=== PATIENT | female | born 1935 | race Caucasian/White ===

== ENCOUNTER 2016-07-03 13:58 | Emergency (ER) | payer OTHER ==
[~2016-07-03] VITALS: Ht 160 cm; Wt 53.5 kg
[~2016-07-03 13:58] MED LIST: /HCTZ25TA PO; AMLO5CAP2 PO; ASPI32ECTA PO; BIMA01SOL OU; CALC600T21 PO; CALC600T9 PO; CENTTAB47 PO; HYDR12.55 PO; IBUP200T2 PO; IBUP600T26 PO; LEVO50TA4 PO; LOTR52CA PO; NORCOTAB PO; PERC5TAB6 PO; SIMV20TA2 PO; SOMA350T PO; SYNT50TA PO; [UNRECOGNIZED DRUG - OTHER] PO
[2016-07-03] MEDS ORDERED: AMLODIPINE BENAZEPRIL (14:39)
[2016-07-03] MEDS ORDERED: IBUP600T26 PO (14:39)
[2016-07-03] MEDS ORDERED: CENTTAB36 PO (14:39)
[2016-07-03] MEDS ORDERED: LEVO50TA5 (14:39)
[2016-07-03] MEDS ORDERED: CALC600T33 PO (14:39)
[2016-07-03 16:26] VITALS: BP 178/85
[2016-07-03] MEDS ORDERED: VALA1TAB PO (16:30)
--- NOTE | 2016-07-03 18:14 | REP ---
CT HEAD WITHOUT CONTRAST: HISTORY: Headache. Areas of decreased attenuation are present in the periventricular white matter. This represents small vessel ischemic disease. There is no intraparenchymal hemorrhage, mass, or midline shift. The ventricular system and cortical sulci as well as subarachnoid space and the posterior fossa are dilated consistent with mild volume loss. There is no extracerebral collection. The visualized sinuses are clear. A 3 mm metallic density is present in the subcutaneous tissue overlying the left frontal bone. IMPRESSION: 1. Small vessel ischemic disease. 2. Mild volume loss. Signed by Boo Sarmiento MD 07/04/2016 08:20 A
== END 2016-07-03 16:40 | disposition home or self-care (01) ==
LOC: M ED 16:14
DX: B02.9 Zoster without complications (principal); E07.9 Disorder of thyroid, unspecified; Z79.899 Other long term (current) drug therapy; Z88.5 Allergy status to narcotic agent

== ENCOUNTER → 2016-07-25 | Outpatient (CLI) | payer OTHER ==
[~2016-07-25] MED LIST changes: +AMLODIPINE BENAZEPRIL; +CALC600T33 PO; +CENTTAB36 PO; +LEVO50TA5; +VALA1TAB PO
--- NOTE | 2016-07-25 10:25 | REP ---
Clinical: Trauma. Injury. Technique: Internal rotation, external rotation, and Y view. Comparison: 09/15/2010. Findings: Osteopenia and age-related degenerative changes are appreciated. No obvious acute fracture or dislocation. Impression: No acute fracture or dislocation. Signed by Ryan Sanchez MD 07/25/2016 10:17 A
== END ==
LOC: M LRY 09:52
PROVIDERS: ATTEND Nurse Practitioner Family
DX: S49.92XA Unspecified injury of left shoulder and upper arm, initial encounter (principal); X58.XXXA Exposure to other specified factors, initial encounter; Y92.89 Other specified places as the place of occurrence of the external cause; Y93.89 Activity, other specified; Y99.8 Other external cause status
CPT/HCPCS: 73030; G0463

== ENCOUNTER → 2016-08-26 | Outpatient (CLI) | payer OTHER ==
--- NOTE | 2016-08-26 11:13 | REP ---
MRI BILATERAL SHOULDER: TECHNIQUE: Axial T2 fat sat, gradient echo, sagittal oblique T2 fat sat, coronal oblique T1, T2 fat sat. LEFT SHOULDER: On the left side, there is a full thickness tear of both the supraspinatus and infraspinatus tendons with retraction and atrophy. Subscapularis tendon appears partially torn. Teres minor appears intact. There is mild subacromial spurring. There does appear to be thin biceps tendon in the bicipital groove without surrounding fluid. There is no Hill-Sachs deformity. No definite abnormal signal is seen in the deltoid muscle. I do not see the biceps inserting onto the anterior superior portion of the labrum and there may be a tear at the biceps labral complex. There is an adjacent tear of the superior labrum. 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 There is moderate joint effusion. Fluid tracks centrally along the rotator cuff tendons. IMPRESSION: Full thickness tears of the supraspinatus and infraspinatus tendons with retraction and atrophy. Partial tear subscapularis tendon. Thin biceps tendon is seen within the bicipital groove but there may be a tear at the biceps labral complex as it is not well visualized. There is a tear of the adjacent superior labrum. Moderate joint effusion. Chondromalacia at the glenohumeral joint with spurring and subchondral cystic changes. RIGHT SHOULDER: There are full thickness tears of the supraspinatus and infraspinatus tendons with retraction and atrophy. Teres minor and subscapularis appear grossly intact. There is mild hypertrophic spurring at the acromioclavicular joint. There may be a thin biceps tendon in the bicipital groove. There is no significant fluid in that region. Biceps labral complex is not well visualized and may be torn. Diffuse SLAP tear is visualized. Anchors are seen in the superolateral humeral head from prior surgery. There is a mild to moderate joint effusion with fluid extending into the subacromial subdeltoid bursae. No paralabral cyst is seen. IMPRESSION: Evidence of prior surgery with metallic anchors in the humeral head. Full thickness complete tears of the supraspinatus and infraspinatus tendons with retraction and atrophy. Mild hypertrophic degenerative changes acromioclavicular joint. SLAP tear with possible tear of the biceps labral complex. Moderate joint effusion with fluid extending into the subacromial subdeltoid bursae. Signed by Abhijeet Donald MD 08/26/2016 08:07 P
== END ==
LOC: M PLARAD 09:00
PROVIDERS: ATTEND Family Medicine
DX: S46.892A Other injury of other muscles, fascia and tendons at shoulder and upper arm level, left arm, initial encounter (principal); M25.412 Effusion, left shoulder; M94.212 Chondromalacia, left shoulder; M75.82 Other shoulder lesions, left shoulder; S43.432A Superior glenoid labrum lesion of left shoulder, initial encounter; X58.XXXA Exposure to other specified factors, initial encounter; Y92.89 Other specified places as the place of occurrence of the external cause; Y93.89 Activity, other specified; Y99.8 Other external cause status; M19.012 Primary osteoarthritis, left shoulder

== ENCOUNTER → 2016-10-10 | Outpatient (REF) | payer OTHER ==
[~2016-10-10] MED LIST changes: +ASPI325T24 PO; -ASPI32ECTA PO; -CALC600T21 PO; -CALC600T33 PO; +CALC600T36 PO; +CALC600T60 PO; +IBUP-1022 PO; -IBUP600T26 PO; +PERC5TAB12 PO; -PERC5TAB6 PO; -VALA1TAB PO; +VALA1TAB2 PO
== END ==
LOC: M SFHCLERA 10-09 16:23
PROVIDERS: ATTEND Family Medicine
DX: J02.9 Acute pharyngitis, unspecified (principal)
CPT/HCPCS: 87070; 87205; G0463

== ENCOUNTER → 2017-04-16 | Outpatient (CLI) | payer OTHER ==
--- NOTE | 2017-04-16 15:46 | REPMRS ---
Patient History The patient states she has not had a clinical breast exam in over a year. Patient is postmenopausal. Family history of colorectal cancer in father and breast cancer in maternal aunt. Digital Woman Screen Mammo: April 16, 2017 - Exam #: [id number] Bilateral CC and MLO view(s) were taken. Technologist: Vanessa Cheek, Technologist Prior study comparison: February 28, 2016, digital woman screen mammo performed at [facility]. February 07, 2015, digital woman screen mammo performed at [facility] to [facility]. FINDINGS: The breast tissue is heterogeneously dense. This may lower the sensitivity of mammography. There has been no change in the appearance of the mammogram from the prior studies. There is a moderate amount of residual fibroglandular tissue which is fairly symmetric. There is no interval development of dominant mass, areas of architectural distortion, or clustered microcalcification typical of malignancy. ASSESSMENT: BI-RADS/ACR category 1 mammogram. Negative. Recommendation Routine screening mammogram in 1 year (for women over age 40). This mammogram was interpreted with the aid of an FDA-approved computer-aided dectection system. Electronically Signed By: Abhijeet Donald MD 04/16/17 [id number]
== END ==
LOC: M WHC 14:12
PROVIDERS: ATTEND Family Medicine
DX: Z12.31 Encounter for screening mammogram for malignant neoplasm of breast (principal); Z78.0 Asymptomatic menopausal state; R92.8 Other abnormal and inconclusive findings on diagnostic imaging of breast

== ENCOUNTER → 2017-05-08 | Outpatient (REF) | payer OTHER ==
[2017-05-08 12:23] LABS: HEMATOCRIT 35.5 % (36.0-47.0); HEMOGLOBIN 11.8 g/dl (12.0-16.0); MEAN CORPUSCULAR HEMOGLOBIN 31.1 pg (27.0-33.0); MEAN CORPUSCULAR HGB CONC 33.2 g/dl (32.0-36.5); MEAN CORPUSCULAR VOLUME 93.4 fl (80.0-96.0); PLATELET COUNT, AUTOMATED 305 10^3/uL (150-450); RED CELL DISTRIBUTION WIDTH 12.4 % (11.5-14.5); WHITE BLOOD COUNT 4.3 10^3/uL (4.0-10.0)
[2017-05-08 13:05] LABS: ALBUMIN/GLOBULIN RATIO 1.29 (1.00-1.93); ALKALINE PHOSPHATASE 53 U/L (45-117); ALT/SGPT 27 U/L (12-78); ANION GAP 5 MEQ/L (8-16); AST/SGOT 24 U/L (7-37); BILIRUBIN,TOTAL 0.3 MG/DL (0.2-1.0); BLOOD UREA NITROGEN 23 MG/DL (7-18); CARBON DIOXIDE LEVEL 30 MEQ/L (21-32); CHLORIDE LEVEL 101 MEQ/L (98-107); CHOLESTEROL LEVEL 228 MG/DL (<200); CHOLESTEROL RISK RATIO 3.352 (<5); CREATININE FOR GFR 0.81 MG/DL (0.55-1.02); GLOMERULAR FILTRATION RATE > 60.0 (>32); GLUCOSE, FASTING 76 MG/DL (83-110); HDL CHOLESTEROL 68 MG/DL (>40); LDL CHOLESTEROL 137.4 MG/DL (<100); NON-HDL-C 160 MG/DL; POTASSIUM SERUM 4.9 MEQ/L (3.5-5.1); SODIUM LEVEL 136 MEQ/L (136-145); TOTAL PROTEIN 7.1 GM/DL (6.4-8.2); TRIGLYCERIDES LEVEL 113 MG/DL (<150)
[2017-05-08 13:06] LABS: CREATININE, URINE 64.7 MG/DL; MALB URINE SIEMENS 21.4 MG/L
[2017-05-08 13:35] LABS: ESTIMATED AVERAGE GLUCOSE 111 MG/DL (60-110); HEMOGLOBIN A1c 5.5 %
== END ==
LOC: M SFHCLERA 09:44
DX: I10 Essential (primary) hypertension (principal); Z79.899 Other long term (current) drug therapy
CPT/HCPCS: 84443

== ENCOUNTER → 2018-01-12 | Outpatient (REF) | payer OTHER ==
[2018-01-12 19:50] LABS: BASO % 0.7 % (0.0-1.0); EOS # 0.2 10^3/uL (0.0-0.50); HEMATOCRIT 37.1 % (36.0-47.0); HEMOGLOBIN 12.7 g/dl (12.0-15.5); IMMATURE GRANULOCYTE % 0.3 % (0-3.0); LYMPH # 1.7 10^3/uL (1.5-4.5); MEAN CORPUSCULAR HEMOGLOBIN 31.9 pg (27.0-33.0); MEAN CORPUSCULAR HGB CONC 34.2 g/dl (32.0-36.5); MEAN CORPUSCULAR VOLUME 93.2 fl (80.0-96.0); MONO # 0.5 10^3/uL (0.0-0.8); NEUTROPHILS # 3.7 10^3/uL (1.8-7.7); PLATELET COUNT, AUTOMATED 309 10^3/uL (150-450); RED BLOOD COUNT 3.98 10^6/uL (4.00-5.40); RED CELL DISTRIBUTION WIDTH 12.4 % (11.5-14.5); WHITE BLOOD COUNT 6.1 10^3/uL (4.0-10.0)
[2018-01-12 22:46] LABS: ANION GAP 11 MEQ/L (8-16); BLOOD UREA NITROGEN 23 MG/DL (7-18); CARBON DIOXIDE LEVEL 23 MEQ/L (21-32); CHLORIDE LEVEL 97 MEQ/L (98-107); CREATININE FOR GFR 0.85 MG/DL (0.55-1.30); GLOMERULAR FILTRATION RATE > 60.0 (>32); GLUCOSE, FASTING 87 MG/DL (70-100); POTASSIUM SERUM 4.6 MEQ/L (3.5-5.1); SODIUM LEVEL 131 MEQ/L (136-145)
== END ==
LOC: M SFHCLERA 16:51
DX: I10 Essential (primary) hypertension (principal)
CPT/HCPCS: 84443

== ENCOUNTER → 2018-04-20 | Outpatient (CLI) | payer OTHER ==
[~2018-04-20] MED LIST changes: -ASPI325T24 PO; +ASPI325T25 PO
--- NOTE | 2018-04-20 18:14 | REPMRS ---
Patient History The patient states she has not had a clinical breast exam in over a year. Patient is postmenopausal. Family history of breast cancer in maternal aunt, colorectal cancer in father. No Hormone Replacement Therapy Digital Woman Screen Mammo: April 20, 2018 - Exam #: [id number] Bilateral CC and MLO view(s) were taken. Technologist: aVnessa Cheek, Technologist Prior study comparison: April 16, 2017, digital woman screen mammo performed at [facility]. February 28, 2016, digital woman screen mammo performed at [facility]. February 07, 2015, digital woman screen mammo performed at [facility] to [facility]. FINDINGS: The breast tissue is heterogeneously dense. This may lower the sensitivity of mammography. There is a moderate amount of heterogeneously dense fibroglandular tissue which is fairly symmetric. There is no interval development of dominant mass, architectural distortion, or clustered microcalcification typical of malignancy. There has been no change in the appearance of the mammogram from the prior studies. 3-D tomosynthesis shows no additional findings. Assessment: BI-RADS/ACR category 1 mammogram. Negative. Recommendation Routine screening mammogram of both breasts in 1 year (for women over age 40). This patient's Lifetime Breast Cancer RIsk is estimated at 1.2 %. This mammogram was interpreted with the aid of an FDA-approved computer-aided dectection system. Electronically Signed By: Darren Mcbride MD 04/20/18 [id number]
== END ==
LOC: M WHC 15:20
PROVIDERS: ATTEND Family Medicine
DX: Z12.31 Encounter for screening mammogram for malignant neoplasm of breast (principal); Z78.0 Asymptomatic menopausal state; Z80.0 Family history of malignant neoplasm of digestive organs

== ENCOUNTER 2018-06-25 05:54 | Day surgery (SDC) | payer MEDICARE ==
[~2018-06-25] VITALS: Ht 157.5 cm; Wt 52.1 kg
[~2018-06-25 05:54] MED LIST changes: +GABA-843
[2018-06-25] MEDS ORDERED: BALANCED SALT IRRIGATION SOLUTION 500ML BAG (FOR OR EYE MACHINE) As Ordered ONE (06:35)
[2018-06-25] MEDS ORDERED: POVIDONE-IODINE 5% OPHTH PREP SOL 30ML As Ordered ONE (06:35)
[2018-06-25] MEDS ORDERED: LIDOCAINE 0.75%/EPINEPHRINE 0.025% IN BSS 1ML SYR INTRACAMERAL (OR ONLY) As Ordered ONE (06:36)
[2018-06-25] MEDS ORDERED: DUOVISC (0.50ML VISCOAT/0.55ML PROVISC) OPHTH KIT As Ordered ONE (06:36)
[2018-06-25] MEDS ORDERED: CEFUROXIME 1MG/0.1ML INTRACAMERAL INJ As Ordered ONE ×2 (06:36→10:15)
[2018-06-25] MEDS ORDERED: PROPARACAINE 0.5% OPHTH SOL 15ML OS ONE (07:00)
[2018-06-25] MEDS ORDERED: PHENYLEPHRINE 2.5% OPHTH SOL 2ML OS ONE (07:00)
[2018-06-25] MEDS ORDERED: TROPICAMIDE 1% OPHTH SOLN 2ML OS ONE (07:00)
[2018-06-25] MEDS ORDERED: OFLOXACIN 0.3 % (OCUFLOX) OPTH SOL 5ML OS ONE (07:00)
[2018-06-25] MEDS ORDERED: MIDAZOLAM INJ 2 MG/2 ML VIAL (J2250) As Ordered ONE (07:09)
[2018-06-25] MEDS ORDERED: fentaNYL 100 MCG/2 ML INJECTION (J3010) As Ordered ONE (07:09)
[2018-06-25 11:20] VITALS: BP 117/79
--- NOTE | 2018-06-27 07:07 | RO ---
DATE OF PROCEDURE: 06/25/2018 PREOPERATIVE DIAGNOSIS: 1. Visually significant nuclear sclerotic cataract, left eye. POSTOPERATIVE DIAGNOSIS: 1. Visually significant nuclear sclerotic cataract, left eye. PROCEDURE PERFORMED: 1. Cataract extraction with use of phacoemulsification, and placement of intraocular lens, SND1T5, 21.5 D, at 178 degrees, left eye, with use of intraoperative aberrometry. SURGEON: Dr. Pineda Sheffield ANESTHESIA: Local with monitored anesthesia care (MAC). COMPLICATIONS: None. POSTOPERATIVE CONDITION: Stable. INDICATION FOR SURGERY: 1. Blurred vision affecting patient's activities of daily living. DESCRIPTION OF PROCEDURE: The patient was seen in the preoperative area and properly identified. The correct operative eye was identified and marked. The patient received topical anesthetic, antibiotics, and topical dilating drops. The patient was then transferred to the operating room. The correct side was re-identified and a time-out was performed. the eye was prepped and draped in a sterile fashion. The eyelids were isolated with Tegaderm tape and the lids were held open with an adjustable speculum. A 1.0 mm paracentesis incision was made. Intraocular preservative free Shugarcaine was then injected into the anterior chamber through the paracentesis. Using a 2.4 mm sharp-tipped keratome, the anterior chamber was entered via a temporal clear cornea incision. A continuous curvilinear capsulorrhexis was created with Utrata forceps. Hydrodissection was performed with balanced salt solution (BSS) on a blunt cannula until the nucleus was able to rotate freely. The crystalline lens was phacoemulsified and aspirated. Irrigation/aspiration was used to remove the cortical material. Cohesive viscoelastic was placed into the capsular bag to deepen it. The Optiwave Refractive Analysis (ORA) device was turned on, two sets of measurements were obtained and the implant power was confirmed. The implant was placed into the capsular bag and allowed to unfold. Placement was confirmed by visualizing the anterior capsulorrhexis. The ORA was then used to position the toric implant, this was done until NRR (no rotated needed) was acheived. Irrigation/aspiration was used to remove the viscoelastic. The clear corneal incision was hydrated with BSS on a blunt cannula. The lens was well positioned.. The incisions were then tested for leaks and found to be negative. The eye was then palpated for appropriate pressure and adjusted accordingly with BSS. The eyelid speculum was then carefully removed. A shield was placed over the eye. The patient tolerated the procedure well and was discharged to the recovery unit in a stable condition. VERONIKA
== END 2018-06-25 11:35 | disposition home or self-care (01) ==
LOC: M SDC 05:54
PROVIDERS: ATTEND Ophthalmology
DX: H25.12 Age-related nuclear cataract, left eye (principal); I10 Essential (primary) hypertension; E03.9 Hypothyroidism, unspecified; Z88.0 Allergy status to penicillin; Z79.899 Other long term (current) drug therapy
CPT/HCPCS: 66984; 92015; J2250; J3010; V2788

== ENCOUNTER 2018-07-02 07:50 | Day surgery (SDC) | payer MEDICARE ==
[~2018-07-02] VITALS: Ht 157.5 cm; Wt 51.3 kg
[~2018-07-02 07:50] MED LIST changes: +BALANCED SALT IRRIGATION SOLUTION 500ML BAG (FOR OR EYE MACHINE) As Ordered ONE; +CEFUROXIME 1MG/0.1ML INTRACAMERAL INJ As Ordered ONE; +DUOVISC (0.50ML VISCOAT/0.55ML PROVISC) OPHTH KIT As Ordered ONE; +LIDOCAINE 0.75%/EPINEPHRINE 0.025% IN BSS 1ML SYR INTRACAMERAL (OR ONLY) As Ordered ONE; +MIDAZOLAM INJ 2 MG/2 ML VIAL (J2250) As Ordered ONE; +OFLOXACIN 0.3 % (OCUFLOX) OPTH SOL 5ML OD ONE; +PHENYLEPHRINE 2.5% OPHTH SOL 2ML OD ONE; +POVIDONE-IODINE 5% OPHTH PREP SOL 30ML As Ordered ONE; +PROPARACAINE 0.5% OPHTH SOL 15ML OD ONE; +TROPICAMIDE 1% OPHTH SOLN 2ML OD ONE; +fentaNYL 100 MCG/2 ML INJECTION (J3010) As Ordered ONE
[2018-07-02] MEDS ORDERED: ONDANSETRON 4MG/2ML VIAL (J2405) As Ordered ONE ×2 (08:37→09:53)
[2018-07-02 11:00] VITALS: BP 98/53
--- NOTE | 2018-07-03 15:38 | RO ---
DATE OF PROCEDURE: 07/02/2018 PREOPERATIVE DIAGNOSIS: 1. Visually significant nuclear sclerotic cataract, right eye. POSTOPERATIVE DIAGNOSIS: 1. Visually significant nuclear sclerotic cataract, right eye. PROCEDURE PERFORMED: 1. Cataract extraction with use of phacoemulsification, and placement of intraocular lens, SV25T4, 22.0 D at 009 degrees, right eye, with use of intraoperative aberrometry. 2. Placement of limbal relaxing incisions, right eye SURGEON: Dr. Pineda Sheffield ANESTHESIA: Local with monitored anesthesia care (MAC). COMPLICATIONS: None. POSTOPERATIVE CONDITION: Stable. INDICATION FOR SURGERY: 1. Blurred vision affecting patient's activities of daily living. DESCRIPTION OF PROCEDURE: The patient was seen in the preoperative area and properly identified. The correct operative eye was identified and marked. The patient received topical anesthetic, antibiotics, and topical dilating drops. The patient was then transferred to the operating room. The correct side was re-identified and a time-out was performed. the eye was prepped and draped in a sterile fashion. The eyelids were isolated with Tegaderm tape and the lids were held open with an adjustable speculum. A 1.0 mm paracentesis incision was made. Intraocular preservative free Shugarcaine was then injected into the anterior chamber through the paracentesis. Using a 2.4 mm sharp-tipped keratome, the anterior chamber was entered via a temporal clear cornea incision. A continuous curvilinear capsulorrhexis was created with Utrata forceps. Hydrodissection was performed with balanced salt solution (BSS) on a blunt cannula until the nucleus was able to rotate freely. The crystalline lens was phacoemulsified and aspirated. Irrigation/aspiration was used to remove the cortical material. Cohesive viscoelastic was placed into the capsular bag to deepen it. The Optiwave Refractive Analysis (ORA) device was turned on, two sets of measurements were obtained and the implant power was confirmed. The implant was placed into the capsular bag and allowed to unfold. Placement was confirmed by visualizing the anterior capsulorrhexis. The ORA was used to align the toric multifocal implant at the 009 degree axis until no rotation needed was achieved. Irrigation/aspiration was used to remove the viscoelastic. The clear corneal incision was hydrated with BSS on a blunt cannula. The lens was well positioned.. The incisions were then tested for leaks and found to be negative. The eye was then palpated for appropriate pressure and adjusted accordingly with BSS. The eyelid speculum was then carefully removed. A shield was placed over the eye. The patient tolerated the procedure well and was discharged to the recovery unit in a stable condition. VERONIKA
== END 2018-07-02 11:27 | disposition home or self-care (01) ==
LOC: M SDC 07:50
PROVIDERS: ATTEND Ophthalmology
DX: H25.11 Age-related nuclear cataract, right eye (principal); I10 Essential (primary) hypertension; E03.9 Hypothyroidism, unspecified; Z87.891 Personal history of nicotine dependence; Z88.8 Allergy status to other drugs, medicaments and biological substances; Z79.899 Other long term (current) drug therapy
CPT/HCPCS: 65772; 66984; J2250; J2405; J3010; V2788

== ENCOUNTER → 2018-09-15 | Outpatient (REF) | payer MEDICARE, OTHER ==
[~2018-09-15] MED LIST changes: -/HCTZ25TA PO; +ASPI-255 PO; -ASPI325T25 PO; -BALANCED SALT IRRIGATION SOLUTION 500ML BAG (FOR OR EYE MACHINE) As Ordered ONE; -CEFUROXIME 1MG/0.1ML INTRACAMERAL INJ As Ordered ONE; -DUOVISC (0.50ML VISCOAT/0.55ML PROVISC) OPHTH KIT As Ordered ONE; +HYDR-3644 PO; +HYDR-3715 PO; -LIDOCAINE 0.75%/EPINEPHRINE 0.025% IN BSS 1ML SYR INTRACAMERAL (OR ONLY) As Ordered ONE; -MIDAZOLAM INJ 2 MG/2 ML VIAL (J2250) As Ordered ONE; -NORCOTAB PO; -OFLOXACIN 0.3 % (OCUFLOX) OPTH SOL 5ML OD ONE; -PHENYLEPHRINE 2.5% OPHTH SOL 2ML OD ONE; -POVIDONE-IODINE 5% OPHTH PREP SOL 30ML As Ordered ONE; -PROPARACAINE 0.5% OPHTH SOL 15ML OD ONE; -TROPICAMIDE 1% OPHTH SOLN 2ML OD ONE; -fentaNYL 100 MCG/2 ML INJECTION (J3010) As Ordered ONE
[2018-09-15 20:40] LABS: CALCIUM LEVEL 9.3 MG/DL (8.8-10.2); CREATININE FOR GFR 0.97 MG/DL (0.55-1.30); GLOMERULAR FILTRATION RATE 58.4 (>32); POTASSIUM SERUM 4.2 MEQ/L (3.5-5.1); THYROID STIMULATING HORMONE 3.61 uIU/ML (0.358-3.740)
== END ==
LOC: M SFHCLERA 14:37
PROVIDERS: ATTEND Family Medicine
DX: I10 Essential (primary) hypertension (principal); E03.9 Hypothyroidism, unspecified

== ENCOUNTER → 2019-01-11 | Outpatient (REF) | payer MEDICARE, OTHER ==
[~2019-01-11] MED LIST changes: -AMLO5CAP2 PO; +AMLO5CAP44 PO
[2019-01-11 20:36] LABS: BASO # 0.1 10^3/uL (0.0-0.2); BASO % 0.8 % (0.0-1.0); EOS # 0.1 10^3/uL (0.0-0.5); EOS % 1.8 % (0.0-3.0); HEMATOCRIT 34.7 % (36.0-47.0); HEMOGLOBIN 11.8 g/dl (12.0-15.5); LYMPH # 1.6 10^3/uL (1.5-5.0); LYMPH % 26.1 % (24.0-44.0); MEAN CORPUSCULAR HEMOGLOBIN 31.8 pg (27.0-33.0); MEAN CORPUSCULAR VOLUME 93.5 fl (80.0-96.0); MONO # 0.6 10^3/uL (0.0-0.8); MONO % 10.1 % (0.0-5.0); NEUTROPHILS # 3.6 10^3/uL (1.5-8.5); PLATELET COUNT, AUTOMATED 288 10^3/uL (150-450); RED BLOOD COUNT 3.71 10^6/uL (4.00-5.40)
[2019-01-11 20:45] LABS: BLOOD UREA NITROGEN 22 MG/DL (7-18); CALCIUM LEVEL 9.3 MG/DL (8.8-10.2); CARBON DIOXIDE LEVEL 28 MEQ/L (21-32); CHLORIDE LEVEL 97 MEQ/L (98-107); CREATININE FOR GFR 0.92 MG/DL (0.55-1.30); GLOMERULAR FILTRATION RATE > 60.0 (>32); GLUCOSE, FASTING 84 MG/DL (70-100); POTASSIUM SERUM 4.5 MEQ/L (3.5-5.1); SODIUM LEVEL 133 MEQ/L (136-145)
[2019-01-11 20:46] LABS: TOTAL 25(OH) VITAMIN D 30.5 NG/ML (30.0-100.0)
== END ==
LOC: M SFHCLERA 15:44
PROVIDERS: ATTEND Family Medicine
DX: I10 Essential (primary) hypertension (principal); E03.9 Hypothyroidism, unspecified; E55.9 Vitamin D deficiency, unspecified

== ENCOUNTER → 2019-02-01 | Outpatient (CLI) | payer MEDICARE ==
--- NOTE | 2019-02-02 15:00 | DEXA ---
AP SPINE L1 - L4 1.198 0.0 1.9 LT FEMUR TOTAL Left hip replacement. LT NECK RT FEMUR TOTAL Right hip replacement. RT NECK TOTAL BODY TOTAL LEFT RADIUS 33% 0.661 -2.5 0.6 COMMENTS: Normal bone densitometry of the spine. There is low bone density of the left radius. The increased density of the spine does not represent a significant change. The decreased density of the left radius. Does represent a significant change. The density of the spine has increased 1.6% since the initial exam on 04/19/1999. The spine density has increased 1.5% since the most recent exam on 02/13/2016. The density of the left radius 33% decreased 11.4% since the initial exam on 06/13/2009. The density of the left radius 33% decreased 9.1% since the most recent exam on 02/13/2016. Bilateral hip replacements. FOLLOW-UP: Recommendation for the next bone density exam: 2 years. VERONIKA
== END ==
LOC: M WHC 14:40
PROVIDERS: ATTEND Family Medicine
DX: Z13.820 Encounter for screening for osteoporosis (principal); M85.831 Other specified disorders of bone density and structure, right forearm; M85.832 Other specified disorders of bone density and structure, left forearm; Z96.643 Presence of artificial hip joint, bilateral; M85.88 Other specified disorders of bone density and structure, other site

== ENCOUNTER → 2019-02-15 | Outpatient (REF) | payer OTHER ==
[2019-02-15 12:29] LABS: FERRITIN 122 NG/ML (8-252); IRON (FE) 83 UG/DL (50-170); PERCENT SATURATION 25.9 % (13.2-45.0); TOTAL IRON BINDING CAPACITY 321 UG/DL (250-450)
[2019-02-15 12:35] LABS: VITAMIN B12 LEVEL 906 PG/ML
[2019-02-15 12:43] LABS: FOLATE > 24.0 NG/ML
== END ==
LOC: M SFHCLERA 09:00
PROVIDERS: ATTEND Family Medicine
DX: D64.9 Anemia, unspecified (principal)

== ENCOUNTER → 2019-02-15 | Outpatient (REF) | payer OTHER | LOC: M SFHCLERA 11:56 | PROVIDERS: ATTEND Family Medicine | DX: D64.9 Anemia, unspecified (principal) ==

== ENCOUNTER → 2019-03-12 | Outpatient (REF) | payer OTHER | LOC: M SFHCLERA 13:39 | PROVIDERS: ATTEND Family Medicine | DX: E03.9 Hypothyroidism, unspecified (principal) ==

== ENCOUNTER → 2019-04-15 | Outpatient (REF) | payer MEDICARE ==
[~2019-04-15] MED LIST changes: +SIMV20TA22 PO; -VALA1TAB2 PO; +VALA1TAB64 PO
[2019-04-15 12:47] LABS: BLOOD UREA NITROGEN 22 MG/DL (7-18); CALCIUM LEVEL 9.4 MG/DL (8.8-10.2); CARBON DIOXIDE LEVEL 30 MEQ/L (21-32); CHLORIDE LEVEL 99 MEQ/L (98-107); CREATININE FOR GFR 0.88 MG/DL (0.55-1.30); GLOMERULAR FILTRATION RATE > 60.0 (>32); GLUCOSE, FASTING 75 MG/DL (70-100); POTASSIUM SERUM 4.8 MEQ/L (3.5-5.1); SODIUM LEVEL 135 MEQ/L (136-145); THYROID STIMULATING HORMONE 0.593 uIU/ML (0.358-3.740)
== END ==
LOC: M SFHCLERA 09:56
PROVIDERS: ATTEND Family Medicine
DX: I10 Essential (primary) hypertension (principal); E03.9 Hypothyroidism, unspecified

== ENCOUNTER → 2019-04-21 | Outpatient (CLI) | payer MEDICARE ==
--- NOTE | 2019-04-21 14:14 | REPMRS ---
Patient History The patient states she has not had a clinical breast exam in over a year. Family history of breast cancer in maternal aunt, colorectal cancer in father. No Hormone Replacement Therapy Digital Woman Screen Mammo: April 21, 2019 - Exam #: [id number] Bilateral CC and MLO view(s) were taken. Technologist: Nadine House, Technologist Prior study comparison: April 20, 2018, bilateral digital woman screen mammo performed at [facility]. April 16, 2017, digital woman screen mammo performed at [facility]. February 28, 2016, digital woman screen mammo performed at [facility]. FINDINGS: The breast tissue is heterogeneously dense. This may lower the sensitivity of mammography. There is a moderate amount of heterogeneously dense fibroglandular tissue which is fairly symmetric. There is no interval development of dominant mass, architectural distortion, or grouped microcalcification typical of malignancy. There has been no change in the appearance of the mammogram from the prior studies. 3-D tomosynthesis shows no additional findings. Assessment: BI-RADS/ACR category 1 mammogram. Negative Mammogram. Recommendation Routine screening mammogram of both breasts in 1 year (for women over age 40). This patient's Lifetime Breast Cancer RIsk is estimated at 0.8 %. This mammogram was interpreted with the aid of an FDA-approved computer-aided dectection system. Electronically Signed By: Darren Mcbride MD 04/21/19 [id number]
== END ==
LOC: M WHC 12:40
PROVIDERS: ATTEND Family Medicine
DX: Z12.31 Encounter for screening mammogram for malignant neoplasm of breast (principal)

== ENCOUNTER → 2019-07-07 | Outpatient (REF) | payer MEDICARE ==
[~2019-07-07] MED LIST changes: +VALA1TAB5 PO; -VALA1TAB64 PO
[2019-07-07 16:50] LABS: BASO % 0.7 % (0.0-1.0); EOS # 0.2 10^3/uL (0.0-0.5); HEMATOCRIT 34.5 % (36.0-47.0); HEMOGLOBIN 11.6 g/dl (12.0-15.5); LYMPH # 1.6 10^3/uL (1.5-5.0); LYMPH % 26.1 % (24.0-44.0); MEAN CORPUSCULAR HGB CONC 33.6 g/dl (32.0-36.5); MONO # 0.5 10^3/uL (0.0-0.8); MONO % 8.2 % (0.0-5.0); NEUTROPHILS # 3.6 10^3/uL (1.5-8.5); NEUTROPHILS % 60.8 % (36.0-66.0); PLATELET COUNT, AUTOMATED 282 10^3/uL (150-450); RED BLOOD COUNT 3.63 10^6/uL (4.00-5.40)
[2019-07-07 17:11] LABS: BLOOD UREA NITROGEN 24 MG/DL (7-18); CALCIUM LEVEL 9.3 MG/DL (8.8-10.2); CARBON DIOXIDE LEVEL 31 MEQ/L (21-32); CHLORIDE LEVEL 100 MEQ/L (98-107); CREATININE FOR GFR 0.84 MG/DL (0.55-1.30); FREE T4 1.18 NG/DL (0.76-1.46); GLOMERULAR FILTRATION RATE > 60.0 (>32); GLUCOSE, FASTING 93 MG/DL (70-100); POTASSIUM SERUM 4.6 MEQ/L (3.5-5.1); SODIUM LEVEL 135 MEQ/L (136-145)
== END ==
LOC: M SFHCLERA 14:33
PROVIDERS: ATTEND Family Medicine
DX: E03.9 Hypothyroidism, unspecified (principal); I10 Essential (primary) hypertension

== ENCOUNTER → 2019-07-13 | Outpatient (REF) | payer MEDICARE ==
[2019-07-13 11:55] LABS: BASO # 0.1 10^3/uL (0.0-0.2); BASO % 0.9 % (0.0-1.0); EOS # 0.2 10^3/uL (0.0-0.5); EOS % 2.7 % (0.0-3.0); HEMATOCRIT 37.3 % (36.0-47.0); HEMOGLOBIN 12.5 g/dl (12.0-15.5); LYMPH # 1.3 10^3/uL (1.5-5.0); LYMPH % 22.1 % (24.0-44.0); MEAN CORPUSCULAR HEMOGLOBIN 32.1 pg (27.0-33.0); MEAN CORPUSCULAR HGB CONC 33.5 g/dl (32.0-36.5); MEAN CORPUSCULAR VOLUME 95.6 fl (80.0-96.0); MONO # 0.5 10^3/uL (0.0-0.8); MONO % 9.1 % (0.0-5.0); NEUTROPHILS # 3.8 10^3/uL (1.5-8.5); NEUTROPHILS % 64.7 % (36.0-66.0); PLATELET COUNT, AUTOMATED 299 10^3/uL (150-450); WHITE BLOOD COUNT 5.9 10^3/uL (4.0-10.0)
[2019-07-13 12:09] LABS: FOLATE > 24.0 NG/ML; VITAMIN B12 LEVEL 719 PG/ML
[2019-07-13 12:19] LABS: FERRITIN 124 NG/ML (8-252); IRON (FE) 85 UG/DL (50-170); PERCENT SATURATION 24.4 % (13.2-45.0); TOTAL IRON BINDING CAPACITY 349 UG/DL (250-450)
== END ==
LOC: M SFHCLERA 09:00
PROVIDERS: ATTEND Family Medicine
DX: D64.9 Anemia, unspecified (principal)
CPT/HCPCS: 82607; 82728; 82746; 83550; 85025; G0463

== ENCOUNTER → 2019-10-21 | Outpatient (REF) | payer MEDICARE ==
[2019-10-21 11:44] LABS: BASO % 0.5 % (0.0-1.0); EOS # 0.1 10^3/uL (0.0-0.5); EOS % 1.6 % (0.0-3.0); HEMATOCRIT 37.3 % (36.0-47.0); HEMOGLOBIN 12.4 g/dl (12.0-15.5); LYMPH # 1.2 10^3/uL (1.5-5.0); LYMPH % 19.4 % (24.0-44.0); MEAN CORPUSCULAR HEMOGLOBIN 31.2 pg (27.0-33.0); MEAN CORPUSCULAR HGB CONC 33.2 g/dl (32.0-36.5); MONO # 0.5 10^3/uL (0.0-0.8); MONO % 8.6 % (0.0-5.0); NEUTROPHILS # 4.4 10^3/uL (1.5-8.5); NEUTROPHILS % 69.4 % (36.0-66.0); PLATELET COUNT, AUTOMATED 278 10^3/uL (150-450); RED BLOOD COUNT 3.97 10^6/uL (4.00-5.40); WHITE BLOOD COUNT 6.3 10^3/uL (4.0-10.0)
[2019-10-21 13:11] LABS: BLOOD UREA NITROGEN 21 MG/DL (7-18); CALCIUM LEVEL 9.4 MG/DL (8.8-10.2); CARBON DIOXIDE LEVEL 26 MEQ/L (21-32); CHLORIDE LEVEL 100 MEQ/L (98-107); CREATININE FOR GFR 0.83 MG/DL (0.55-1.30); GLOMERULAR FILTRATION RATE > 60.0 (>32); GLUCOSE, FASTING 91 MG/DL (70-100); POTASSIUM SERUM 4.6 MEQ/L (3.5-5.1); SODIUM LEVEL 133 MEQ/L (136-145)
== END ==
LOC: M SFHCLERA 10:12
PROVIDERS: ATTEND Family Medicine
DX: I10 Essential (primary) hypertension (principal); E03.9 Hypothyroidism, unspecified; Z86.2 Personal history of diseases of the blood and blood-forming organs and certain disorders involving the immune mechanism
CPT/HCPCS: 80048; 84443; 85025; G0463